=== PATIENT | female | born 1995 | race Caucasian/White ===

== ENCOUNTER 2018-11-08 22:47 | Emergency (ER) | payer OTHER ==
[~2018-11-08] VITALS: Ht 167.6 cm; Wt 62.0 kg
[2018-11-08 23:57] LABS: BASOPHILS # (AUTO) 0.02 x10^3/uL (0-0.1); BASOPHILS % (AUTO) 0 % (0-1); EOSINOPHILS # (AUTO) 0.21 x10^3/uL (0-0.4); EOSINOPHILS % (AUTO) 3 % (1-7); LYMPHOCYTES # (AUTO) 3.34 x10^3/uL (1-3.4); LYMPHOCYTES % (AUTO) 42 % (22-44); MD NO; MEAN CORPUSCULAR HEMOGLOBIN 29.9 pg (27.0-34.8); MEAN CORPUSCULAR HGB CONC 32.5 g/dL (32.4-35.8); MEAN PLATELET VOLUME 8.5 fL (7.4-10.4); MONOCYTES # (AUTO) 0.36 x10^3/uL (0.2-0.8); MONOCYTES % (AUTO) 5 % (2-9); NEUTROPHILS # (AUTO) 4.12 x10^3/uL (1.8-6.8); NEUTROPHILS % (AUTO) 51 % (42-75); PLATELET COUNT 300 x10^3/uL (130-400); RED BLOOD COUNT 5.07 x10^6/uL (3.82-5.3); RED CELL DISTRIBUTION WIDTH 13.6 % (9.6-15.2)
[2018-11-08] MEDS ORDERED: ONDANSETRON 2MG/ML, 2ML ONE (23:58)
[2018-11-08] MEDS ORDERED: MORPHINE SULFATE 4 MG/ML, 1ML ONE (23:58)
[2018-11-09] MEDS ORDERED: MORPHINE SULFATE 4 MG/ML, 1ML IVPush PRN
[2018-11-09] MEDS ORDERED: SODIUM CHLORIDE FLUSH 10ML SYR IVF ONE
[2018-11-09] MEDS ORDERED: ONDANSETRON 2MG/ML, 2ML IVPush ONE
[2018-11-09 00:02] LABS: MICROSCOPIC NOT IND
[2018-11-09 00:04] LABS: CULTURE INDICATED? NO
[2018-11-09 00:05] LABS: ALANINE AMINOTRANSFERASE 17 U/L (12-78); ALBUMIN 3.9 g/dL (3.4-5.0); ANION GAP 11 mmol/L (5-15); CHLORIDE 108 mmol/L (98-107); CREATININE 0.93 mg/dL (0.55-1.02)
--- NOTE | 2018-11-09 00:06 | NUR ---
PT HERE FOR RLQ PAIN. PT HAS HX OF RUPTURED CYST. PIV PLACED. PT MEDICATED FOR PAIN. UA SENT TO LAB. PT RESTING WITH NO NEEDS AT THIS TIME. CALL LIGHT IN REACH
[2018-11-09 00:09] LABS: ALKALINE PHOSPHATASE 85 U/L (45-117); BILIRUBIN,TOTAL 0.2 mg/dL (0.2-1.0); TOTAL PROTEIN 7.6 g/dL (6.4-8.2)
[2018-11-09] MEDS ORDERED: BIRTHCONTROL PO (00:09)
[2018-11-09] MEDS ORDERED: KETOROLAC 30 MG/1 ML IVPush ONE (01:00)
[2018-11-09] MEDS ORDERED: KETOROLAC 30 MG/1 ML ONE (01:05)
[2018-11-09 01:12] VITALS: BP 104/65
--- NOTE | 2018-11-09 01:14 | NUR ---
PT MEDICATE WITH TORADOL. VSS. PT SAYS PAIN HAS IMPROVED. CALL LIGHT IN REACH
--- NOTE | 2018-11-09 02:17 | NUR ---
Patient given discharge instructions and they have confirmed that they understand the instructions. Patient ambulatory with steady gait.
== END 2018-11-09 02:19 | disposition home or self-care (01) ==
LOC: ED 23:59
DX: N80.9 Endometriosis, unspecified (principal)
CPT/HCPCS: 36415; 80053; 81003; 83690; 84703; 85025; 96374; 96375; 99283; J1885; J2270; J2405

== ENCOUNTER 2020-08-06 05:37 | Inpatient (IN) | payer OTHER ==
[~2020-08-06] VITALS: Ht 167.6 cm; Wt 61.3 kg
[~2020-08-06 05:37] MED LIST: BIRTHCONTROL PO; ELAG150T PO
[2020-08-06 06:24] VITALS: BP 126/87
[2020-08-06] MEDS ORDERED: CHLORHEXIDINE 15 ML UDC MM ONE (06:30)
[2020-08-06] MEDS ORDERED: LACTATED RINGERS 1,000 ML IV SCH (06:30)
[2020-08-06 06:39] LABS: HCG UR SG 1.029 (1.003-1.030)
[2020-08-06] MEDS ORDERED: SCOPOLAMINE 1MG PATCH TD STA (07:11)
[2020-08-06] MEDS ORDERED: SCOPOLAMINE 1MG PATCH TD ONE (07:12)
[2020-08-06] MEDS ORDERED: LIDOCAINE-MPF 2% ,5ML ONE ×2 (07:19)
[2020-08-06] MEDS ORDERED: FENTANYL PF 250 MCG/5ML ONE (07:19)
[2020-08-06] MEDS ORDERED: ROCURONIUM 10MG/ML,5ML ONE (07:19)
[2020-08-06] MEDS ORDERED: PROPOFOL 10 MG/ML, 20ML ONE (07:19)
[2020-08-06] MEDS ORDERED: INDIGO CARMINE 0.8%, 5ML ONE (07:20)
[2020-08-06] MEDS ORDERED: BUPIVACAINE/PF 0.25% ONE (07:20)
[2020-08-06] MEDS ORDERED: MIDAZOLAM 1 MG/ML, 2ML ONE (07:24)
[2020-08-06] MEDS ORDERED: CEFAZOLIN 1,000 MG ONE ×2 (07:46→07:47)
[2020-08-06] MEDS ORDERED: DEXAMETHASONE 4 MG/ML, 1ML ONE ×2 (07:49)
[2020-08-06] MEDS ORDERED: ONDANSETRON 2MG/ML, 2ML IVPush PRN ×2 (08:30→11:30)
[2020-08-06] MEDS ORDERED: PROMETHAZINE 25 MG/ML, 1ML IVPush PRN (08:30)
[2020-08-06] MEDS ORDERED: ACETAMINOPHEN 325 MG TABLET PO PRN (08:30)
[2020-08-06] MEDS ORDERED: INTERCEED 3 X 4 INCH DRESSING ONE ×2 (09:28→09:43)
[2020-08-06] MEDS ORDERED: FENTANYL PF 100 MCG/2ML ONE ×3 (09:57→11:18)
[2020-08-06] MEDS ORDERED: SUGAMMADEX 200 MG/2 ML IVPush ONE (10:35)
[2020-08-06] MEDS ORDERED: KETOROLAC 30 MG/1 ML ONE (10:37)
[2020-08-06] MEDS ORDERED: ONDANSETRON 2MG/ML, 2ML ONE (10:37)
[2020-08-06] MEDS: FENTANYL PF 100 MCG/2ML IV PRN ×4 (11:06→11:30)
[2020-08-06] MEDS ORDERED: ACETAMINOPHEN 650 MG/20.3 ML UDC ONE (11:26)
[2020-08-06] MEDS ORDERED: OXYcodone 5 MG/5 ML ORAL.SOL UDC ONE ×2 (11:26→12:12)
[2020-08-06] MEDS: OXYcodone 5 MG/5 ML ORAL.SOL UDC PO PRN ×2 (11:29→12:13)
[2020-08-06] MEDS ORDERED: OXYcodone/APAP 5/325MG TABLET PO PRN (11:30)
[2020-08-06] MEDS ORDERED: HYDROmorphone 1 MG/ML, 1ML INJ ONE (11:54)
[2020-08-06] MEDS: HYDROmorphone 1 MG/ML, 1ML INJ IVPush PRN ×2 (11:57→12:08)
[2020-08-06 14:25] VITALS: BP 134/77
[2020-08-06] MEDS: KETOROLAC 30 MG/1 ML IVPush PRN (16:45)
[2020-08-06 19:26] VITALS: BP 121/72
[2020-08-07 00:07] VITALS: BP 91/52
[2020-08-07] MEDS: KETOROLAC 30 MG/1 ML IVPush PRN (00:21)
[2020-08-07 04:18] VITALS: BP 127/72
[2020-08-07 07:20] VITALS: BP 125/73
[2020-08-07 12:30] VITALS: BP 110/70
== END 2020-08-07 13:05 | disposition home or self-care (01) | DRG 743 ==
LOC: OUT 05:37 → EDBD 07:30 → EDIP 12:14 → 4NE 12:45 → DCLOUNGE 08-07 12:55
PROVIDERS: ADMIT Specialist; ATTEND Specialist
PROC: 0UB20ZZ Excision of Bilateral Ovaries, Open Approach (ICD-10-PCS; 2020-08-06)
PROC: 0BBT0ZZ Excision of Diaphragm, Open Approach (ICD-10-PCS; 2020-08-06)
PROC: 0BQT0ZZ Repair Diaphragm, Open Approach (ICD-10-PCS; 2020-08-06)
PROC: 0TN70ZZ Release Left Ureter, Open Approach (ICD-10-PCS; 2020-08-06)
PROC: 0TN60ZZ Release Right Ureter, Open Approach (ICD-10-PCS; 2020-08-06)
PROC: 8E0W3CZ Robotic Assisted Procedure of Trunk Region, Percutaneous Approach (ICD-10-PCS; 2020-08-06)
PROC: 8E0W0CZ Robotic Assisted Procedure of Trunk Region, Open Approach (ICD-10-PCS; 2020-08-06)
PROC: 0WBN0ZZ Excision of Female Perineum, Open Approach (ICD-10-PCS; principal; 2020-08-06 07:30)
DX: N80.3 Endometriosis of pelvic peritoneum (principal); D07.1 Carcinoma in situ of vulva; N80.1 Endometriosis of ovary; N83.202 Unspecified ovarian cyst, left side; N83.201 Unspecified ovarian cyst, right side; N80.5 Endometriosis of intestine
CPT/HCPCS: 71045; 81025; 88304; 88305; G0378; J0690; J1100; J1170; J1885; J2250; J2405; J2704; J3010; C1765; J7120